=== PATIENT | female | born 1990 | race Caucasian/White ===

== ENCOUNTER 2018-01-13 08:57 | Day surgery (SDC) | payer OTHER ==
[2018-01-10 12:39] VITALS: BMI 37.8
[2018-01-13] MEDS ORDERED: MIDAZOLAM HCL 2 MG/2 ML SINGLE DOSE VIAL ONE (10:47)
[2018-01-13] MEDS ORDERED: BUPIVACAINE HCL/PF 2.5 MG/ML - 30 ML VIAL IJ ONE (10:57)
[2018-01-13] MEDS ORDERED: EPINEPHrine 1:1,000 1 MG/1 ML - 30ML VIAL (INJECTION) ONE (10:57)
[2018-01-13] MEDS ORDERED: methylPREDNISolone ACET (DEPO) 40 MG/1 ML VIAL ONE (11:08)
[2018-01-13] MEDS ORDERED: LIDOCAINE HCL 1%, 10 MG/ML (20ML VIAL) ONE (11:08)
[2018-01-13] MEDS ORDERED: PROPOFOL 20 ML ONE ×3 (11:17→11:26)
[2018-01-13] MEDS ORDERED: LIDOCAINE HCL 2% 100 MG/5 ML DISP.SYRIN ONE (11:18)
[2018-01-13] MEDS ORDERED: DEXAMETHASONE SOD PHOSPHATE 4 MG/1 ML VIAL ONE (11:28)
[2018-01-13] MEDS ORDERED: ONDANSETRON 4 MG/2 ML VIAL ONE ×2 (11:28→12:58)
[2018-01-13] MEDS ORDERED: ceFAZolin SODIUM 1 GM VIAL ONE (11:28)
[2018-01-13] MEDS ORDERED: BUPIVACAINE HCL/PF (5 MG/ML) 30 ML VIAL IJ ONE (11:31)
[2018-01-13] MEDS ORDERED: KETOROLAC TROMETHAMINE 30 MG/1 ML VIAL ONE (11:37)
[2018-01-13] MEDS ORDERED: HEPARIN NA (PORCINE) 5,000 UNITS/ML 1ML VIAL ONE (11:44)
[2018-01-13] MEDS ORDERED: oxyCODONE HCL 5 MG TABLET PO PRN (12:23)
[2018-01-13] MEDS ORDERED: ONDANSETRON 4 MG/2 ML VIAL IVPUSH PRN (12:23)
[2018-01-13] MEDS ORDERED: LACTATED RINGERS SOLUTION 1,000 ML IV SCH (12:30)
[2018-01-13 13:42] VITALS: BP 116/71; PULSE 68; TEMP 97.9
--- NOTE | 2018-01-15 17:11 | OP ---
DATE OF OPERATION: 01/13/2018 LOCATION: [facility]. SURGEON: Lee Workman MD POT PUSHER: GABE Benitez PREOPERATIVE DIAGNOSES: 1. Right knee medial and lateral meniscal tear. 2. Right knee cartilage injury. 3. Right knee synovitis. POSTOPERATIVE DIAGNOSES: 1. Right knee medial and lateral meniscal tear. 2. Right knee cartilage injury. 3. Right knee synovitis. PROCEDURE: 1. Right knee arthroscopy with partial meniscectomy, medial and lateral meniscus. 2. Right knee arthroscopy with chondroplasty and abrasion-plasty. 3. Right knee arthroscopy with synovectomy, extensive. FINDINGS: 1. Extensive synovitis noted in the medial and lateral patellofemoral notch area with extension and erosion into the medial and lateral portions of the femur, most extensive on the medial portion with extension underneath the meniscus, causing tearing and inflammation along the cartilage surface. 2. Medial meniscus posterior horn tear. 3. Lateral meniscus posterior body horn tear. 4. Extensive synovitis. 5. Anterior grade 2 cartilage injury, medial femoral condyle, with central grade 2 to 4 changes, medial tibial plateau, with extensive synovitis in the medial joint. 6. Anterior cruciate ligament and posterior cruciate ligament intact. 7. Diffuse grade 1 to 2 cartilage injury, lateral joint line, with softening most extended along the posterolateral portion. 8. Central grade 1 to 2 cartilage injury, patella, with anterior medial and anterior lateral grade 4 changes, and slight synovial adhesions. PROCEDURE: Informed consent was obtained. The patient came to the operating room, where the lower extremity was prepped and draped in a sterile fashion. A tourniquet was placed on the upper thigh, but not inflated. Using standard arthroscopic technique, a lateral incision and portal was made to allow for introduction of the camera into the suprapatellar bursa. This was then taken to the medial joint line, where under direct visualization, a medial incision and portal was made. Excessive synovium noted in the medial, lateral and patellofemoral and notch area was removed by an upbiter, shaver and Bovie cautery. This was found to bring in inflammatory tissue into the joint surface, a source of pain and dysfunction. Probing of the medial and lateral meniscus found tears, as described in the findings. These were removed with the upbiter and shaver and taken back to a stable rim. Grade 2 to 3 degenerative changes were treated with a chondroplasty, removing all flaking surfaces with low-setting Bovie along the periphery to prevent further flaking. Grade 4 changes, as noted, were treated with an abrasoplasty, creating a bleeding surface at the bone/cartilage interface. Aggressive debridement with shaver/coleen created bleeding surface. Micro fracture also done when indicated in findings All areas of the knee were once again reexamined. The knee was then drained and a single suture was placed in all portals. A sterile dressing was placed and the patient was transferred to the recovery room without complication. ADDENDUM: Patient did have tearing with extensive synovitis, as described in the findings. An extensive debridement was needed, as in Findings, using a shaver, and aggressive removal using Bovie cautery and shaver. This was most pronounced in the medial and lateral joint but extended along the notch and suprapatellar bursa. LEE WORKMAN M.D. [id number]
--- NOTE | 2018-01-19 12:08 | PATH ---
Surgical Pathology Report Patient Name: KAE RIOS Med. Rec. #: [id number] /Age/Gender: 1990 (Age: 27) / F Account: [id number] Location: COUNTS INCLUDE 234 BEDS AT THE [facility] AMBULATORY Taken: 01/13/2018 Received: 01/13/2018 Reported: 01/19/2018 Physicians: Lee Engle M.D. Specimen(s) Received RIGHT KNEE SHAVINGS Clinical History Right knee internal derangement Final Diagnosis KNEE, RIGHT, ARTHROSCOPIC SHAVINGS: FIBROSYNOVIAL TISSUE SHOWING ACUTE INFLAMMATORY EXUDATE, DENSE LYMPHOPLASMOCYTIC INFILTRATE AND REACTIVE SYNOVIAL HYPERPLASIA. (SEE NOTE) Note: Although these findings are non-specific, dense lymphoplasmacytic infiltrate involving synovium with reactive synovial hyperplasia may be seen in association with rheumatoid arthritis. Correlation with clinico-radiologic and serologic findings is suggested. Electronically Signed Regina Ansari M.D. Gross Description Received in formalin, labeled "right knee shavings," is a 4.5 x 3.2 x 0.4 cm. aggregate of goss-yellow soft tissue fragments. A signs sales representative portion is submitted in one cassette. /01/13/2018 saudi01/13/2018
== END 2018-01-13 14:15 | disposition home or self-care (01) ==
LOC: FASU 08:57
PROVIDERS: ATTEND Orthopaedic Surgery
PROC: 0SBC4ZZ Excision of Right Knee Joint, Percutaneous Endoscopic Approach (ICD-10-PCS; 2018-01-13)
PROC: 0SBC4ZZ Excision of Right Knee Joint, Percutaneous Endoscopic Approach (ICD-10-PCS; 2018-01-13)
PROC: 0SBC4ZZ Excision of Right Knee Joint, Percutaneous Endoscopic Approach (ICD-10-PCS; principal; 2018-01-13 11:42)
DX: S83.241A Other tear of medial meniscus, current injury, right knee, initial encounter (principal); S83.281A Other tear of lateral meniscus, current injury, right knee, initial encounter; S83.8X1A Sprain of other specified parts of right knee, initial encounter; M65.861 Other synovitis and tenosynovitis, right lower leg; X58.XXXA Exposure to other specified factors, initial encounter; Y93.89 Activity, other specified; Y92.89 Other specified places as the place of occurrence of the external cause
CPT/HCPCS: 84703; 88304-TC; 94760; J1644